=== PATIENT | male | born 1960 | race Hispanic/Latino ===

== ENCOUNTER 2019-06-20 06:19 | Day surgery (SDC) | payer OTHER ==
[2019-06-20] MEDS ORDERED: ASPIRIN EC 325 MG TAB PO ONE (06:57)
[2019-06-20] MEDS ORDERED: SODIUM CHLORIDE 0.9% 500 ML 500 ML IV SCH (07:00)
[2019-06-20 07:43] LABS: Basophils % (Auto) 1.1 % (0.0-1.8); Eosinophils % (Auto) 1.1 % (0.0-4.3); Hematocrit 41.3 % (35.5-45.6); Hemoglobin 14.1 gm/dl (11.8-15.2); Lymphocytes # (Auto) 1.5 K/mm3 (1.2-5.4); Lymphocytes % (Auto) 36.3 % (13.4-35.0); Mean Corpuscular HGB Conc 34 % (32-34); Mean Corpuscular Volume 89 fl (84-94); Monocytes # (Auto) 0.4 K/mm3 (0.0-0.8); Monocytes % (Auto) 9.6 % (0.0-7.3); Platelet Count 171 K/mm3 (140-440); Red Blood Count 4.66 M/mm3 (3.65-5.03); Red Cell Distribution Width 13.6 % (13.2-15.2)
[2019-06-20 07:54] LABS: INR 0.93 (0.87-1.13)
[2019-06-20 08:11] LABS: BUN/Creatinine Ratio 17; Blood Urea Nitrogen 15 mg/dL (9-20); Calcium 8.9 mg/dL (8.4-10.2); Hemolysis Index 11
[2019-06-20] MEDS ORDERED: HEPARIN/NS 5000 UNIT/500ML 1,000 ML IR ONE (09:28)
[2019-06-20] MEDS ORDERED: MIDAZOLAM 2 MG/2 ML INJ ONE (09:28)
[2019-06-20] MEDS ORDERED: LIDOCAINE (2%) 20 MG/1 ML VIAL 20 ML MDV INFILTRATI ONE (09:29)
[2019-06-20] MEDS ORDERED: fentaNYL 100 MCG/2 ML INJ ONE (09:29)
[2019-06-20] MEDS ORDERED: VERAPAMIL 5 MG/2 ML INJ ONE (09:30)
[2019-06-20] MEDS ORDERED: NITROGLYCERIN SYRINGE 3 ML ONE (09:31)
[2019-06-20] MEDS ORDERED: HEPARIN 10,000 UNITS/10 ML VIAL ONE (09:31)
[2019-06-20] MEDS ORDERED: traMADol 50 MG TAB PO PRN (10:24)
--- NOTE | 2019-06-20 10:28 | Short Stay Summary ---
Short Stay Documentation Date of service: 06/20/19 - History H&P: obtained from office - Allergies and Medications Current Medications: Allergies No Known Allergies Allergy (Verified 06/20/19 07:01) Active Medications Aspirin (Baby Aspirin) 81 mg PO QDAY STERLING Sodium Chloride (Nacl 0.9% 500 Ml) 500 mls @ 50 mls/hr IV DIRECT STER[place]ING Stop: 06/20/19 16:59 Isosorbide Mononitrate (Imdur) 30 mg PO QDAY STERLING - Brief post op/procedure progress note Date of procedure: 06/20/19 Pre-op diagnosis: cp Post-op diagnosis: same Procedure: see report Anesthesia: local Estimated blood loss: none Pathology: none - Disposition Condition at discharge: Good Disposition: NC-01 TO HOME OR SELFCARE - Discharge Diagnoses (1) Chest pain Status: Chronic Qualifiers: Ischemic chest pain type: stable angina pectoris (2) CAD (coronary artery disease) Status: Acute Qualifiers: Coronary Disease-Associated Artery/Lesion type: [place] artery [place] vs. transplanted heart: [place] heart Associated angina: with stable angina Qualified Code(s): I25.118 - Atherosclerotic heart disease of [place] coronary artery with other forms of angina pectoris (3) Hypertension Status: Chronic Qualifiers: Hypertension type: essential hypertension Qualified Code(s): I10 - [place] l (primary) hypertension (4) Hyperlipemia, mixed Status: Chronic (5) Diabetes Status: Chronic Qualifiers: Diabetes mellitus type: type 1 Diabetes mellitus complication status: with circulatory complication Diabetes mellitus complication detail: with other circulatory complications Qualified Code(s): E10.59 - Type 1 diabetes mellitus with other circulatory complications (6) Diabetes type 1, uncontrolled Status: Acute Short Stay Discharge Plan Activity: advance as tolerated Diet: low fat, low cholesterol, low salt, diabetic Wound: keep clean and dry Follow up with: MEREDITH LANG MD [Primary Care Provider] - 7 Days
--- NOTE | 2019-06-20 10:38 | Cardiac Catherization Report ---
LEFT HEART CATHETERIZATION CLINICAL INFORMATION: A 59-year-old patient with hypertension, hyperlipidemia, insulin-dependent diabetes, presents with recurrent chest pain, abnormal treadmill stress test. No significant ischemia on nuclear perfusion. In view of recurrent chest pain with despite medical therapy, is here for suspected coronary artery disease. Left heart catheterization was done with moderate sedation started at 9:35 a.m., finished at 9:50 a.m., which is 15 minutes of moderate sedation. Procedure was done via the right radial artery, sterile technique, local anesthesia, 6-Ugandan radial sheath inserted. Left system, JL3.5 catheter. FINDINGS: Left main is large and patent, bifurcates. Proximal LAD is a large caliber, patent. Then diagonal 1 is a medium caliber vessel, has a proximal 50%. The rest of LAD is a 50% lesion, but at the bifurcation, there is a focal 95% lesion. Lesion length is around 10 mm. Circumflex is a large caliber vessel, proximal is patent, mid has a focal 90% lesion and the proximal length is 10 mm going to a large OM1 that is patent with upper and lower branch. RCA engaged with JR4, is a large dominant vessel, is patent from proximally and distally. PDA, PLV are patent. LV gram done in JAPANESE and ROJAS view shows normal LV function, LVEDP 19 mmHg, LV is 139. Aortic is 139/79. No gradient across the aortic valve on pullback. 5-Ugandan catheters all taken over a guidewire, 5-Ugandan radial sheath was discontinued. Radial dressing applied. No hematoma, no bleeding. SUMMARY: 1. Left main patent, LAD proximal large and patent, but at the bifurcation of a medium caliber diagonal 1, which has a proximal 50% lesion. The LAD has a focal 95% lesion. The rest of LAD is [id number] caliber vessel is patent. Circumflex is a large caliber vessel, proximal mid prior to going to OM1 has a focal 90% lesion going to a large OM1 and upper and lower branch are patent. RCA is a large dominant vessel, patent. PDA, PLV patent, normal LV function. 2. The patient will be referred to [place] for robotic LYNCH to LAD and PCI of mid circumflex. The patient should be on aspirin therapy, long-acting nitrates, beta blockers and statins, but patient has refused statins in the past and good diabetes control. Discussed this in detail with the patient and the patient's . JOB# [id number] MARCUS/DEANDRA
[2019-06-20 12:35] VITALS: BP 134/73
[2019-06-21] MEDS ORDERED: ASPIRIN 81 MG TAB CHEW PO SCH (10:00)
== END 2019-06-20 13:00 | disposition home or self-care (01) ==
LOC: CATHLABREC 06:19
PROVIDERS: ATTEND Internal Medicine
DX: R07.9 Chest pain, unspecified (principal); I10 Essential (primary) hypertension; E11.9 Type 2 diabetes mellitus without complications; E78.2 Mixed hyperlipidemia; E66.9 Obesity, unspecified; E03.9 Hypothyroidism, unspecified; I25.10 Atherosclerotic heart disease of native coronary artery without angina pectoris; K21.9 Gastro-esophageal reflux disease without esophagitis; Z68.39 Body mass index [BMI] 39.0-39.9, adult; Z98.890 Other specified postprocedural states; Z79.4 Long term (current) use of insulin; Z79.899 Other long term (current) drug therapy; Z79.82 Long term (current) use of aspirin
CPT/HCPCS: 36415; 80048; 85025; 85610; 85730; 93005; 93010; 93458; 99156; C1894; J1644; J2250; J3010; J7040; Q9967